=== PATIENT | male | born 1970 | race Caucasian/White ===

== ENCOUNTER 2016-10-31 19:16 | Emergency (ER) | payer MEDICAID, MEDICARE ==
[~2016-10-31] VITALS: Ht 172.7 cm; Wt 225.0 kg
[2016-10-31 19:33] VITALS: BP 115/79; PULSE 107; RESP 16; O2SAT 96
--- NOTE | 2016-10-31 21:11 | ED.REPORT ---
HPI-Back Pain 40 and Over Date of Service Oct 31, 2016 ED Provider: Dr. Ezekiel Odonnell 45 year old male with a hx of HIV, COPD, seizures and MS who presents to the ER with progressively worsening L sided lumbar pain since he woke from sleep 8-9 days ago. Pain radiates down L leg and is worse with movement and relieved with laying flat. Pt denies any known history and does not have any history of chronic back pain. Pt denies fever, changes in bowel/bladder, numbness and weakness. He denies any hx of IV drug use. Nursing Notes Stated Complaint: SEVERE BACK PAIN Chief Complaint: Back Pain or Injury Nursing Notes Reviewed: Yes Allergies: Uncoded Allergies: KEPRA (Allergy, Unknown, MEMORY LOSS, 10/31/16) General Time Seen by MD: 21:10 Chief Complaint Lumbar pain Hx Obtained From: Patient Arrived By: Walk-in Sudden in Onset?: Yes Onset Occurred: More than a week ago... Symptom Duration: Since onset Caused by: Spontaneous/no mechanism Location: : Perispinal lumbar Quality: Painful Severity: Current: Moderate Associated with: Denies: Incontinence bladder, Incontinence bowel, Numbness both low ext, Weakness both lower ext Exacerbated by: Movement Relieved by: Lying still Past Medical History Past Medical History HIV- last count undetectable COPD MS HTN Past Surgical History Reports: Carpal tunnel Smoking History Unknown if Ever Smoker Social History Alcohol Use: "Social" (rare) Drug Use: Denies drug use Ambulatory Status Independent Review of Systems Basic Review of Systems Eyes: Vision NL, No discharge ENT: Hearing NL, No pain, No nasal congestion, No pharyngeal pain Psychiatric: Normal thought content Constitutional: Denies: Fever Respiratory: Denies: Shortness of breath Cardiovascular: Denies: Chest pain GI: Denies: Abdominal pain, Diarrhea Musculoskeletal: Reports: Back pain, Extremity pain, Denies: Neck pain Neurologic: Denies: Bladder dysfunction, Bowel dysfunction, Numbness, Weakness Complete sys rev & neg: except as marked. Physical Exam Initial Vital Signs Vital Signs (First) Date Time Temp Pulse Resp B/P Pulse Ox O2 Delivery O2 Flow Rate FiO2 10/31/16 19:33 36.6 107 16 115/79 96 Room Air Initial VS: Reviewed Head / Eyes: Atraumatic, Normocephalic, PERRL ENT: Mucous membranes moist, Conjunctiva normal, No scleral icterus Neck: Full range of motion Skin: Warm, Dry, No cyanosis Psychiatric: Mood/affect normal, Behavior normal, Normal thought content General/Constitutional: Awake, Alert, Cooperative Respiratory / Chest: Breath sounds NL, Breath sounds = bilat, No respiratory distress, No rales, No rhonchi, No wheezing Cardiovascular: Heart rate NL, Regular rhythm, Heart sounds NL, No murmurs, Peripheral circulation NL Abdomen: Soft, Non-tender Back: No midline vertebral tend Mild L CVAT Neurologic: Oriented X3, Speech NL, No motor deficits, No sensory deficits Pt has NO signs of saddle anesthesia, signs of myelopathy, urine retention, signs of cauda equina or any sensorymotor deficits. Nl strenth to lower extremities. Interpretation & Diagnostics Lab Results Interpretation Result Diagram: 10/31/16214210/31/162142 Test 10/31/16 21:43 10/31/16 21:50 10/31/16 21:57 White Blood Count 9.6th/mm3 (3.8-10.1) Red Blood Count 4.89mil/mm3 (4.40-5.80) Hemoglobin 15.4g/dL (13.8-17.2) Hematocrit 44.1% (41.0-50.0) Mean Corpuscular Volume 90.2fL (81-100) Mean Corpuscular Hemoglobin 31.5pg (27.0-35.0) Mean Corpuscular Hemoglobin Concent 34.9% (32.0-37.0) Red Cell Distribution Width 13.2% (12.3-15.4) Platelet Count 236bil/L (150-400) Neutrophils (%) (Auto) 63.7% (40-74) Lymphocytes (%) (Auto) 24.2% (14-46) Monocytes (%) (Auto) 8.2% (4-12) Eosinophils (%) (Auto) 3.2% (0-5) Basophils (%) (Auto) 0.5% (0-3) Sodium Level 135mEq/L (134-144) Potassium Level 4.0mEq/L (3.5-5.2) Chloride Level 97mEq/L (97-108) Carbon Dioxide Level 25mmol/L (18-29) Blood Urea Nitrogen 14mg/dL (6-24) Creatinine 0.93mg/dL (0.76-1.27) Estimat Glomerular Filtration Rate 93mL/min (>59) Glucose Level 97mg/dL (60-99) Calcium Level 9.4mg/dL (8.5-10.1) Total Bilirubin 0.2mg/dL (0.0-1.2) Aspartate Amino Transf (AST/SGOT) 21U/L (0-50) Alanine Aminotransferase (ALT/SGPT) 21U/L (0-44) Alkaline Phosphatase 74U/L (25-150) C-Reactive Protein 3.0mg/dL (0.0-0.5) Total Protein 7.2g/dL (6.4-8.4) Albumin 4.3g/dL (3.4-5.0) Procalcitonin 0.05ng/mL (0.00-0.08) Hold Prince Top Tube Received (Received) Hold Urine Received (Received) Urine Color Yellow (YELLOW) Urine Appearance Clear (CLEAR,HAZY) Urine pH 6.0 (5.0-8.0) Urine Specific [place] 1.025 (1.003-1.035) Urine Protein Negativemg/dL (NEG,TRACE) Urine Glucose (UA) Negativemg/dL (NEGATIVE) Urine Ketones Negativemg/dL (NEGATIVE) Urine Occult Blood Negative (NEGATIVE) Urine Nitrite Negative (NEGATIVE) Urine Bilirubin Negative (NEGATIVE) Urine Urobilinogen Normalmg/dL (NORMAL) Urine Leukocyte Esterase Negative (NEGATIVE) Urine RBC 0-2/hpf (0-2) Urine WBC 0-5/hpf (0-5) Urine Epithelial Cells Occasional/hpf (NONE-MOD) Urine Crystals None seen (NONE SEEN) Urine Bacteria None/hpf (NONE-FEW) Urine Hyaline Casts None/lpf (NONE) Urine Granular Casts None seen (NONE SEEN) Urine Waxy Casts None seen (NONE SEEN) Urine Red Blood Cell Casts None seen (NONE SEEN) Urine White Blood Cell Casts None seen (NONE SEEN) Urine Mucus None seen (None Seen) Urine Trichomonas None seen (NONE SEEN) Urine Yeast None (NONE SEEN) Urinalysis Comment None Urine Culture Reflexed Not indicated General Lab Results Interp 1: Labs reviewed Pulse Oximetry Interpretation Pulse Oximetry: Pulse Ox normal (96), On room air Re-Eval/Medical Decision Med Decision/Clinical Course The pain certainly seems to be musculoskeletal and emanates from the muscle mass of his left flank and left paraspinal muscles. There is absolutely no midline bony tenderness. He shows no signs of a cord syndrome or myelopathy. He does have well controlled HIV. His viral load is 0. His immune system is not compromised. He is not an injection drug abuse or of any type. He has not had a fever or recent illness that he knows of that would predispose him to staph or strep osteomyelitis. No history of tuberculosis. On exam he looked well. Normal thorough sensory, motor and cerebellar examination. No saddle anesthesia. No priapism. No urine retention. No loss of bowel or bladder control. He refused rectal exam however he tells me he has control of his anus. CBC was normal. Pro calcitonin was normal. C-reactive protein was less than 5 and he has normal white blood cell count. Adam and I chatted about all of this. Neither one of us think he has an infection or myelitis. Otherwise think he needs an emergent MRI right now. Pain was completely relieved with the pain medicine is able to get up and move about. I will place him on a short course of Percocet and have very close follow-up. He will come back here tomorrow if the pain worsens or if it becomes midline where he develops even the slightest symptom consistent with an infection. I went over this with them. Otherwise he will follow-up next week. He looked great at discharge. I think he is going very well. Re-Evaluation/Progress : Time of Eval: 23:28 Re-Evaluation/Progress Note: Feels much better and would like to go home. Discussed plan for discharge and follow up. All questions addressed. Counseled Regarding: Diagnosis, Lab results, Need for follow-up, When/why to return to ED Discharge & Departure Impression: Primary Impression: Low back pain Chronicity: acute Back pain laterality: left Sciatica presence: without sciatica Qualified Code: M54.5 - Low back pain Disposition: Home Discharge Condition All VS Reviewed: Yes Condition: Improved Patient Instructions: Acute Low Back Pain (ED) Additional Instructions: You can take 1-2 Percocet every 6 hours as needed for pain. Do not drink alcohol , drive or use acetaminophen while taking this medication. The cause for your symptoms today is unknown but your lab work today was very reassuring. Return to the ER for fever, numbness, weakness or new or worsening symptoms. You may need to have a MRI. Call on Thursday to set up an appointment with the primary care provider. Referrals: [facility] (PCP) [facility] [place] Attestation Portions of this note were transcribed by Nasrin Miller. I, (Dr. Odonnell) personally performed the history, physical exam and medical decision-making; I reviewed and confirmed the accuracy of the information in the transcribed note. Signed by: Nasrin Miller. [place], 10/31/2016, [id number] copies to: [facility] Ezekiel Odonnell DO Oct 31, 2016 21:11 Nasrin Miller Oct 31, 2016 21:16
[2016-10-31] MEDS ORDERED: Ondansetron 2 mg/mL 2 mL Inj IVPUSH PRN (21:20)
[2016-10-31] MEDS: HYDROmorphone 0.5 mg/0.5 mL iSecure Syringe IVPUSH PRN ×2 (21:45→22:39)
[2016-10-31 21:51] LABS: BASOPHILS % (AUTO) 0.5 % (0-3); EOSINOPHILS % (AUTO) 3.2 % (0-5); MONOCYTES % (AUTO) 8.2 % (4-12); Mean Corpuscular Hemoglobin 31.5 pg (27.0-35.0); Mean Corpuscular Volume 90.2 fL (81-100); NEUTROPHILS % (AUTO) 63.7 % (40-74); Platelet Count 236 bil/L (150-400)
[2016-10-31 22:16] LABS: APPEARANCE,URINE CLEAR (CLEAR,HAZY); COLOR,URINE YELLOW (YELLOW); OCCULT BLOOD,URINE NEGATIVE (NEGATIVE); UROBILINOGEN,URINE NORMAL (NORMAL)
[2016-10-31] MEDS ORDERED: _oxyCODONE/APAP 5-325 mg Tablet PO PRN ×2 (23:00→23:45)
[2016-10-31 23:52] VITALS: BP 120/80; PULSE 95; RESP 18; O2SAT 97
[2016-11-01 00:02] VITALS: BP 120/80; PULSE 95; RESP 18; O2SAT 97
== END 2016-11-01 00:03 | disposition home or self-care (01) ==
LOC: SED 19:16
DX: M54.5 Low back pain (principal); J44.9 Chronic obstructive pulmonary disease, unspecified; G35 Multiple sclerosis; I10 Essential (primary) hypertension; F17.200 Nicotine dependence, unspecified, uncomplicated; Z21 Asymptomatic human immunodeficiency virus [HIV] infection status; Z88.8 Allergy status to other drugs, medicaments and biological substances
CPT/HCPCS: 36415; 80053; 81000; 82308; 85025; 86140; 96374; 96375; 96376; 99284; J1170; J2405